=== PATIENT | male | born 1995 | race Caucasian/White ===

== ENCOUNTER 2018-01-16 11:58 | Emergency (ER) | payer BC, MEDICAID ==
[2018-01-16 12:08] VITALS: BMI 22.8
--- NOTE | 2018-01-16 13:18 | RAD ---
HISTORY: chest pain COMPARISON: Chest x-ray performed 08/23/15 TECHNIQUE: Chest PA and lateral FINDINGS: LUNGS: No focal consolidation. Please note that chest x-ray has limited sensitivity for the detection of pulmonary masses. PLEURA: No significant pleural effusion identified. No definite pneumothorax . CARDIOVASCULAR: Heart size appears within normal limits. OSSEOUS STRUCTURES: No acute osseous abnormality identified. VISUALIZED UPPER ABDOMEN: Unremarkable. OTHER FINDINGS: Right nipple ring. IMPRESSION: No acute findings identified.
--- NOTE | 2018-01-16 13:26 | C.PDOC ---
History Of Present Illness 22 y/o M c no PMHx p/w chest pain x 2 days. Pain is midsternal, sharp, nonradiating, constant, started at rest, worse with palpation or movement. Denies fever, cough, dyspnea, nausae, vomiting, diaphoresis, trauma. Time Seen by Provider: 01/16/18 12:15 Chief Complaint (Nursing): Chest Pain Past Medical History Vital Signs: Last Vital Signs Temp 98.3 F 01/16/18 12:09 Pulse 105 H 01/16/18 12:09 Resp 20 01/16/18 12:09 BP 140/82 01/16/18 12:09 Pulse Ox 100 01/16/18 13:26 - Medical History PMH: Denies: Chronic Kidney Disease Surgical History: Endoscopy - [facility] Procedures TETANUS TOXOID ADMINIST (12/11/14) Family History: States: Unknown Family Hx - Social History Hx Tobacco Use: Yes Hx Alcohol Use: No Hx Substance Use: Yes - Immunization History Hx Tetanus Toxoid Vaccination: No Hx Influenza Vaccination: No Hx Pneumococcal Vaccination: No Review Of Systems Except As Marked, All Systems Reviewed And Found Negative. Constitutional: Negative for: Fever Respiratory: Negative for: Shortness of Breath Physical Exam - Physical Exam Additional Physical Exam Comments: Gen: NAD head: NC Eyes: No scleral icterus ENT: MMM Neck: Supple Chest: Reproducible tenderness. Reproducibel pain with pectoral muscle use. No deformity CV: Regular rhythm Lungs: CTA b/l Abd: Soft Extremities: No swelling Skin: No rash over chest Neuro: Alert, no focal deficit ED Course And Treatment O2 Sat by Pulse Oximetry: 100 Medical Decision Making Medical Decision Making: FINDINGS: LUNGS: No focal consolidation. Please note that chest x-ray has limited sensitivity for the detection of pulmonary masses. PLEURA: No significant pleural effusion identified. No definite pneumothorax . CARDIOVASCULAR: Heart size appears within normal limits. OSSEOUS STRUCTURES: No acute osseous abnormality identified. VISUALIZED UPPER ABDOMEN: Unremarkable. OTHER FINDINGS: Right nipple ring. IMPRESSION: No acute findings identified. EKG NSR 93 bpm, no ST/T wave changes. Troponin negative in this constant chest pain of 2 days. Will discharge home, f/u primary care, return to ED for worsening breathing, fever, or any other problem. Disposition - Disposition Disposition: HOME/ ROUTINE Disposition Time: 13:29 Condition: STABLE Prescriptions: Famotidine [Pepcid] 1 tab PO BID #14 tab Ibuprofen [Motrin] 600 mg PO Q6 #25 tab Instructions: Costochondritis Forms: [facility] (Lao) - Clinical Impression Clinical Impression: Chest wall pain
[2018-01-16 14:17] VITALS: BP 121/65; PULSE 62; RESP 17; TEMP 98.8; O2SAT 99
--- NOTE | 2018-01-17 12:08 | CARD ---
APPROVED REPORT EKG Measurement Heart [id number] <Conclusion> Normal sinus rhythm Normal ECG
== END 2018-01-16 14:34 | disposition home or self-care (01) ==
LOC: C.ER 11:58
DX: R07.89 Other chest pain (principal); Z72.0 Tobacco use
CPT/HCPCS: 71046; 84484; 93005; 96372; 99285; J1885